=== PATIENT | female | born 1975 | race African-American/Black ===

== ENCOUNTER 2022-02-20 08:55 | Inpatient (IN) ==
[2022-02-20] MEDS ORDERED: FUROSEMIDE 100 MG/10 ML VIAL IV STA (09:19)
[2022-02-20] MEDS ORDERED: MORPHINE 2 MG/1 ML SYRINGE IV STA ×2 (09:20→10:04)
[2022-02-20] MEDS ORDERED: hydrALAZINE 20 MG/1 ML VIAL IV STA ×2 (09:21→11:15)
[2022-02-20 09:32] LABS: Basophils # 0.1 10*3/uL (0.0-0.2); Basophils % 0.5 % (0.0-0.8); Eosinophils # 0.2 10*3/uL (0.0-0.87); Eosinophils % 1.5 % (0.00-10.9); Hemoglobin 9.4 GM/DL (12.0-16.0); Immature Granulocytes % 0.8 %; Immature Granulocytes Absolute 0.09 #; Lymphocytes # 2.4 10*3/uL (1.4-4.0); Lymphocytes % 21.9 % (21.3-54.2); Mean Corpuscular HGB Conc 34.8 GM/DL (32-36); Mean Corpuscular Volume 91.2 FL (87-102); Mean Platelet Volume 9.7 FL (9.6-12.0); Monocytes # 0.6 10*3/uL (0.11-0.8); Monocytes % 5.3 % (1.7-12.7); Platelet Count 340 T/CUMM (130-400); Red Blood Count 2.96 MC/CUMM (3.8-5.5); Red Cell Distribution Width 14.6 % (9.3-17.3); White Blood Count 10.9 T/CUMM (4-12)
[2022-02-20 09:54] LABS: Alanine Aminotransferase 27 U/L (13-56); Albumin 1.6 G/DL (3.4-5.0); Alkaline Phosphatase 59 U/L (45-117); Aspartate Amino Transferase 22 U/L (0-37); Bilirubin,Total < 0.39 MG/DL (0.20-1.00); Blood Urea Nitrogen 37 MG/DL (7-18); Calcium 8.9 MG/DL (8.5-10.1); Carbon Dioxide 26 MMOL/L (21-32); Chloride 103 MMOL/L (98-107); Glucose 457 MG/DL (74-106); Osmolality,Calculated 296.2 MOS/KG (273-304); Potassium 4.3 MMOL/L (3.5-5.1); Sodium 134 MMOL/L (136-145); Total Protein 10.7 G/DL (6.4-8.2)
[2022-02-20] MEDS ORDERED: NITROGLYCERIN SL 0.4 MG TABLET SL STA (10:03)
[2022-02-20] MEDS ORDERED: MORPHINE 10 MG/1 ML VIAL IV STA (10:03)
[2022-02-20] MEDS ORDERED: NICOTINE 21 MG/24 HR PATCH TRANSDERM PRN (11:03)
[2022-02-20] MEDS ORDERED: MORPHINE 2 MG/1 ML SYRINGE IV PRN (11:03)
[2022-02-20] MEDS ORDERED: BUTALBITAL/ACETAMIN/CAFFEINE 50-325-40 MG TABLET PO PRN (11:07)
[2022-02-20] MEDS ORDERED: ALBUTEROL 2.5 MG/3 ML NEB RESP TX PRN (11:08)
[2022-02-20 11:09] LABS: Bacteria,Urine Occasional /HPF (Few); Mucus,Urine Occasional /LPF (Occasional); RBC,Urine 722 /HPF (0-4); Squamous Epithelial Cell,Urine Occasional /HPF (0-10); Urine Color Light Red (Yellow)
[2022-02-20 11:10] LABS: Bilirubin,Urine Negative (Negative); Glucose,Urine (UA) >=1000 mg/dL (Negative); Ketones,Urine Negative (Negative); Nitrite,Urine Negative (Negative); Protein,Urine >=300 mg/dL (Negative); Urine Appearance Hazy (Clear); Urine Specific Gravity 1.015 (1.001-1.035); Urine pH 6.5 (4.5-8.0)
[2022-02-20 11:11] LABS: Blood, Urine Large mg/dL (Negative); Urine Urobilinogen 0.2 eU/dL (<2.0)
[2022-02-20 11:35] LABS: % Iron Saturation 35.1 % (18-50)
[2022-02-20] MEDS: HEPARIN 5,000 UNIT/1 ML VIAL SUBCUT SCH ×2 (12:24→20:32)
[2022-02-20] MEDS: INSULIN REGULAR 100 UNIT/ML SUBCUT SCH ×3 (12:24→20:33)
[2022-02-20] MEDS ORDERED: LABETALOL 20 MG/4 ML SYRINGE IV ONE (13:05)
[2022-02-20] MEDS: ONDANSETRON 4 MG/2 ML VIAL IV PRN ×2 (13:05→18:43)
[2022-02-20 13:27] LABS: Folate > 24.00 NG/ML (5.38-24.0); Vitamin B12 559 PG/ML (211-911)
[2022-02-20] MEDS: ALBUTEROL 2.5 MG/3 ML NEB RESP TX SCH ×2 (14:34→21:02)
[2022-02-20] MEDS: cloNIDine 0.1 MG TABLET PO SCH ×2 (16:09→20:31)
[2022-02-20] MEDS: FUROSEMIDE 40 MG/4 ML VIAL IV SCH (16:11)
[2022-02-20] MEDS: hydrALAZINE 20 MG/1 ML VIAL IV PRN (16:14)
[2022-02-20] MEDS: carvediloL 25 MG TABLET PO SCH (20:31)
[2022-02-20] MEDS: AMITRIPTYLINE 25 MG TABLET PO SCH (20:37)
[2022-02-21] MEDS: ALBUTEROL 2.5 MG/3 ML NEB RESP TX SCH ×4 (02:38→19:30)
[2022-02-21 06:26] LABS: Alanine Aminotransferase 19 U/L (13-56); Albumin 1.3 G/DL (3.4-5.0); Alkaline Phosphatase 44 U/L (45-117); Aspartate Amino Transferase 8 U/L (0-37); Bilirubin,Total < 0.39 MG/DL (0.20-1.00); Blood Urea Nitrogen 42 MG/DL (7-18); Calcium 8.6 MG/DL (8.5-10.1); Carbon Dioxide 28 MMOL/L (21-32); Chloride 108 MMOL/L (98-107); Cholesterol 101 MG/DL (50-200); Glucose 140 MG/DL (74-106); HDL Cholesterol 44 MG/DL (40-60); Osmolality,Calculated 289.5 MOS/KG (273-304); Potassium 3.9 MMOL/L (3.5-5.1); Sodium 139 MMOL/L (136-145); Total Protein 8.8 G/DL (6.4-8.2); Triglycerides 69 MG/DL (2-150); VLDL Cholesterol 13.8 MG/DL
[2022-02-21 06:35] LABS: Basophils # 0.1 10*3/uL (0.0-0.2); Basophils % 0.5 % (0.0-0.8); Eosinophils # 0.1 10*3/uL (0.0-0.87); Eosinophils % 1.1 % (0.00-10.9); Hematocrit 21.9 VOL% (35.7-47.0); Hemoglobin 7.6 GM/DL (12.0-16.0); Immature Granulocytes % 0.8 %; Immature Granulocytes Absolute 0.08 #; Lymphocytes # 2.4 10*3/uL (1.4-4.0); Lymphocytes % 24.7 % (21.3-54.2); Mean Corpuscular HGB Conc 34.7 GM/DL (32-36); Mean Platelet Volume 9.7 FL (9.6-12.0); Monocytes # 0.7 10*3/uL (0.11-0.8); Monocytes % 7.5 % (1.7-12.7); NRBC # 0.02 10*3/uL; Neutrophils % 65.4 % (38.7-73.9); Platelet Count 292 T/CUMM (130-400); Red Blood Count 2.38 MC/CUMM (3.8-5.5); Red Cell Distribution Width 14.8 % (9.3-17.3); White Blood Count 9.9 T/CUMM (4-12)
[2022-02-21] MEDS ORDERED: DAPAGLIFLOZIN 10 MG TABLET PO SCH (09:00)
[2022-02-21] MEDS: SPIRONOLACTONE 25 MG TABLET PO SCH (09:03)
[2022-02-21] MEDS: cloNIDine 0.1 MG TABLET PO SCH ×3 (09:03→20:44)
[2022-02-21] MEDS: carvediloL 25 MG TABLET PO SCH ×2 (09:03→20:44)
[2022-02-21] MEDS: ASPIRIN CHEW 81 MG TABLET PO SCH (09:03)
[2022-02-21] MEDS: PANTOPRAZOLE 40 MG TABLET PO SCH (09:03)
[2022-02-21] MEDS: GABAPENTIN 100 MG CAPSULE PO SCH (09:03)
[2022-02-21] MEDS: MONTELUKAST 10 MG TABLET PO SCH (09:03)
[2022-02-21] MEDS: ERGOCALCIFEROL 50,000 UNIT CAPSULE PO SCH (09:03)
[2022-02-21] MEDS: ATORVASTATIN 40 MG TABLET PO SCH (09:04)
[2022-02-21] MEDS: HEPARIN 5,000 UNIT/1 ML VIAL SUBCUT SCH ×2 (09:05→20:47)
[2022-02-21] MEDS: FUROSEMIDE 40 MG/4 ML VIAL IV SCH ×2 (09:05→15:19)
[2022-02-21] MEDS: INSULIN REGULAR 100 UNIT/ML SUBCUT SCH ×4 (09:06→20:46)
[2022-02-21 10:59] LABS: Free T4 (Free Thyroxine) 0.9 NG/DL (0.76-1.46)
[2022-02-21 12:52] LABS: Hematocrit 22.3 VOL% (35.7-47.0); Hemoglobin 7.8 GM/DL (12.0-16.0)
[2022-02-21] MEDS ORDERED: GLUCAGON 1 MG VIAL IM PRN (12:56)
[2022-02-21] MEDS ORDERED: DEXTROSE 10% 250 ML BAG IV PRN (12:57)
[2022-02-21] MEDS ORDERED: ALUMINUM/MAGNES/SIMETH MAX STR 30 ML UDCUP PO PRN (14:51)
[2022-02-21 19:28] LABS: Hematocrit 23.9 VOL% (35.7-47.0); Hemoglobin 8.3 GM/DL (12.0-16.0)
[2022-02-21] MEDS: guaiFENesin/DM ER 600-30 MG TABLET PO PRN (20:44)
[2022-02-21] MEDS: AMITRIPTYLINE 25 MG TABLET PO SCH (20:46)
[2022-02-21] MEDS ORDERED: INSULIN GLARGINE 100 UNIT/ML SUBCUT SCH (21:00)
[2022-02-22] MEDS: ALBUTEROL 2.5 MG/3 ML NEB RESP TX SCH ×4 (00:02→19:49)
[2022-02-22 01:51] LABS: Basophils % 0.5 % (0.0-0.8); Eosinophils # 0.2 10*3/uL (0.0-0.87); Eosinophils % 2.3 % (0.00-10.9); Hemoglobin 6.6 GM/DL (12.0-16.0); Immature Granulocytes % 0.7 %; Immature Granulocytes Absolute 0.06 #; Lymphocytes # 3.3 10*3/uL (1.4-4.0); Mean Corpuscular HGB Conc 34.7 GM/DL (32-36); Mean Corpuscular Volume 91.8 FL (87-102); Mean Platelet Volume 9.7 FL (9.6-12.0); Monocytes # 0.6 10*3/uL (0.11-0.8); Monocytes % 6.9 % (1.7-12.7); Neutrophils % 49.6 % (38.7-73.9); Platelet Count 264 T/CUMM (130-400); Red Blood Count 2.07 MC/CUMM (3.8-5.5); Red Cell Distribution Width 14.7 % (9.3-17.3); White Blood Count 8.3 T/CUMM (4-12)
[2022-02-22 02:23] LABS: Potassium 4.1 MMOL/L (3.5-5.1)
[2022-02-22 07:57] LABS: Hematocrit 22.5 VOL% (35.7-47.0); Hemoglobin 7.8 GM/DL (12.0-16.0)
[2022-02-22] MEDS: cloNIDine 0.1 MG TABLET PO SCH ×3 (09:47→21:18)
[2022-02-22] MEDS: PANTOPRAZOLE 40 MG TABLET PO SCH (09:47)
[2022-02-22] MEDS: carvediloL 25 MG TABLET PO SCH ×2 (09:47→21:18)
[2022-02-22] MEDS: MONTELUKAST 10 MG TABLET PO SCH (09:47)
[2022-02-22] MEDS: ATORVASTATIN 40 MG TABLET PO SCH (09:47)
[2022-02-22] MEDS: GABAPENTIN 100 MG CAPSULE PO SCH (09:47)
[2022-02-22] MEDS: INSULIN REGULAR 100 UNIT/ML SUBCUT SCH ×4 (09:48→21:19)
[2022-02-22] MEDS: ASPIRIN CHEW 81 MG TABLET PO SCH (09:48)
[2022-02-22] MEDS: HEPARIN 5,000 UNIT/1 ML VIAL SUBCUT SCH ×2 (09:48→21:20)
[2022-02-22] MEDS: FUROSEMIDE 40 MG/4 ML VIAL IV SCH (09:48)
[2022-02-22] MEDS: SPIRONOLACTONE 25 MG TABLET PO SCH (09:48)
[2022-02-22] MEDS ORDERED: SODIUM CHLORIDE 0.9% 1,000 ML IV PRN (10:20)
[2022-02-22] MEDS ORDERED: INSULIN GLARGINE 100 UNIT/ML SUBCUT SCH (21:00)
[2022-02-22] MEDS: ACETAMINOPHEN 325 MG TABLET PO PRN (21:25)
[2022-02-22] MEDS: AMITRIPTYLINE 25 MG TABLET PO SCH (21:27)
[2022-02-22 21:38] LABS: Hematocrit 26.7 VOL% (35.7-47.0); Hemoglobin 9.2 GM/DL (12.0-16.0)
[2022-02-23] MEDS: ALBUTEROL 2.5 MG/3 ML NEB RESP TX SCH ×4 (00:49→19:14)
[2022-02-23 01:55] LABS: Basophils # 0.1 10*3/uL (0.0-0.2); Basophils % 0.6 % (0.0-0.8); Eosinophils # 0.2 10*3/uL (0.0-0.87); Eosinophils % 2.3 % (0.00-10.9); Hematocrit 25.1 VOL% (35.7-47.0); Hemoglobin 8.8 GM/DL (12.0-16.0); Immature Granulocytes Absolute 0.08 #; Lymphocytes # 3.2 10*3/uL (1.4-4.0); Lymphocytes % 38.9 % (21.3-54.2); Mean Corpuscular HGB Conc 35.1 GM/DL (32-36); Mean Corpuscular Volume 89.6 FL (87-102); Mean Platelet Volume 10.1 FL (9.6-12.0); Monocytes # 0.6 10*3/uL (0.11-0.8); NRBC # 0.02 10*3/uL; Neutrophils % 50.2 % (38.7-73.9); Platelet Count 288 T/CUMM (130-400); Red Cell Distribution Width 15.2 % (9.3-17.3); White Blood Count 8.3 T/CUMM (4-12)
[2022-02-23 01:58] LABS: Calcium 7.7 MG/DL (8.5-10.1); Osmolality,Calculated 289.4 MOS/KG (273-304); Potassium 4.8 MMOL/L (3.5-5.1)
[2022-02-23] MEDS ORDERED: FUROSEMIDE 40 MG/4 ML VIAL IV SCH (09:00)
[2022-02-23] MEDS: INSULIN REGULAR 100 UNIT/ML SUBCUT SCH ×4 (09:48→20:33)
[2022-02-23] MEDS: cloNIDine 0.1 MG TABLET PO SCH ×3 (09:49→20:32)
[2022-02-23] MEDS: SPIRONOLACTONE 25 MG TABLET PO SCH (09:49)
[2022-02-23] MEDS: carvediloL 25 MG TABLET PO SCH ×2 (09:49→20:32)
[2022-02-23] MEDS: HEPARIN 5,000 UNIT/1 ML VIAL SUBCUT SCH ×2 (09:49→20:32)
[2022-02-23] MEDS: ASPIRIN CHEW 81 MG TABLET PO SCH (09:49)
[2022-02-23] MEDS: PANTOPRAZOLE 40 MG TABLET PO SCH (09:50)
[2022-02-23] MEDS: MONTELUKAST 10 MG TABLET PO SCH (09:50)
[2022-02-23] MEDS: ATORVASTATIN 40 MG TABLET PO SCH (09:50)
[2022-02-23] MEDS: GABAPENTIN 100 MG CAPSULE PO SCH (09:50)
[2022-02-23] MEDS: ACETAMINOPHEN 325 MG TABLET PO PRN (09:58)
[2022-02-23] MEDS: POLYETHYLENE GLYCOL POWDER 17 GM PACK PO SCH ×2 (13:55→20:32)
[2022-02-23] MEDS: AMITRIPTYLINE 25 MG TABLET PO SCH (20:32)
[2022-02-23] MEDS: INSULIN GLARGINE 100 UNIT/ML SUBCUT SCH (20:33)
[2022-02-24] MEDS: ALBUTEROL 2.5 MG/3 ML NEB RESP TX SCH ×4 (00:12→22:10)
[2022-02-24 05:42] LABS: Basophils % 0.5 % (0.0-0.8); Eosinophils # 0.2 10*3/uL (0.0-0.87); Eosinophils % 2.7 % (0.00-10.9); Hematocrit 23.8 VOL% (35.7-47.0); Hemoglobin 8.2 GM/DL (12.0-16.0); Immature Granulocytes % 0.9 %; Immature Granulocytes Absolute 0.07 #; Lymphocytes # 2.6 10*3/uL (1.4-4.0); Lymphocytes % 34.8 % (21.3-54.2); Mean Corpuscular HGB Conc 34.5 GM/DL (32-36); Mean Corpuscular Volume 90.5 FL (87-102); Mean Platelet Volume 9.6 FL (9.6-12.0); Monocytes # 0.6 10*3/uL (0.11-0.8); Monocytes % 8.1 % (1.7-12.7); Platelet Count 267 T/CUMM (130-400); Red Blood Count 2.63 MC/CUMM (3.8-5.5); Red Cell Distribution Width 15.2 % (9.3-17.3); White Blood Count 7.5 T/CUMM (4-12)
[2022-02-24 05:53] LABS: INR 1.2; PT Patient Result 12.6 SECS (10.1-12.1); Partial Thromboplastin Time 24.2 SECS (23.7-32.9)
[2022-02-24 06:02] LABS: Calcium 7.7 MG/DL (8.5-10.1); Osmolality,Calculated 291.8 MOS/KG (273-304); Potassium 4.7 MMOL/L (3.5-5.1)
[2022-02-24] MEDS: cloNIDine 0.1 MG TABLET PO SCH ×3 (10:22→20:44)
[2022-02-24] MEDS: ATORVASTATIN 40 MG TABLET PO SCH (10:23)
[2022-02-24] MEDS: MONTELUKAST 10 MG TABLET PO SCH (10:23)
[2022-02-24] MEDS: metOLazone 5 MG TABLET PO SCH (10:23)
[2022-02-24] MEDS: GABAPENTIN 100 MG CAPSULE PO SCH (10:23)
[2022-02-24] MEDS: carvediloL 25 MG TABLET PO SCH ×2 (10:23→20:44)
[2022-02-24] MEDS: ASPIRIN CHEW 81 MG TABLET PO SCH (10:23)
[2022-02-24] MEDS: FUROSEMIDE 80 MG TABLET PO SCH (10:23)
[2022-02-24] MEDS: INSULIN REGULAR 100 UNIT/ML SUBCUT SCH ×4 (10:24→20:46)
[2022-02-24] MEDS: POLYETHYLENE GLYCOL POWDER 17 GM PACK PO SCH ×2 (10:24→20:44)
[2022-02-24] MEDS: PANTOPRAZOLE 40 MG TABLET PO SCH (10:24)
[2022-02-24] MEDS: HEPARIN 5,000 UNIT/1 ML VIAL SUBCUT SCH (10:24)
[2022-02-24] MEDS: ACETAMINOPHEN 325 MG TABLET PO PRN (14:49)
[2022-02-24] MEDS: AMITRIPTYLINE 25 MG TABLET PO SCH (20:44)
[2022-02-24] MEDS: INSULIN GLARGINE 100 UNIT/ML SUBCUT SCH (20:45)
[2022-02-25] MEDS: ALBUTEROL 2.5 MG/3 ML NEB RESP TX SCH ×4 (02:09→19:35)
[2022-02-25 04:06] LABS: Basophils % 0.5 % (0.0-0.8); Eosinophils # 0.2 10*3/uL (0.0-0.87); Eosinophils % 2.5 % (0.00-10.9); Hemoglobin 8.3 GM/DL (12.0-16.0); Immature Granulocytes % 0.7 %; Immature Granulocytes Absolute 0.05 #; Lymphocytes # 2.6 10*3/uL (1.4-4.0); Lymphocytes % 35.1 % (21.3-54.2); Mean Corpuscular HGB Conc 34.6 GM/DL (32-36); Mean Corpuscular Volume 90.9 FL (87-102); Mean Platelet Volume 9.7 FL (9.6-12.0); Monocytes # 0.7 10*3/uL (0.11-0.8); Monocytes % 9.4 % (1.7-12.7); Neutrophils % 51.8 % (38.7-73.9); Platelet Count 262 T/CUMM (130-400); Red Blood Count 2.64 MC/CUMM (3.8-5.5); Red Cell Distribution Width 14.8 % (9.3-17.3); White Blood Count 7.3 T/CUMM (4-12)
[2022-02-25 04:24] LABS: Calcium 7.5 MG/DL (8.5-10.1); Osmolality,Calculated 289.2 MOS/KG (273-304); Potassium 4.5 MMOL/L (3.5-5.1)
[2022-02-25] MEDS: INSULIN REGULAR 100 UNIT/ML SUBCUT SCH ×4 (07:43→21:25)
[2022-02-25] MEDS ORDERED: DIAZEPAM 5 MG TABLET PO ONE (09:04)
[2022-02-25] MEDS: metOLazone 5 MG TABLET PO SCH (09:09)
[2022-02-25] MEDS: ATORVASTATIN 40 MG TABLET PO SCH (09:09)
[2022-02-25] MEDS: cloNIDine 0.1 MG TABLET PO SCH ×3 (09:09→21:24)
[2022-02-25] MEDS: carvediloL 25 MG TABLET PO SCH ×2 (09:10→21:24)
[2022-02-25] MEDS: FUROSEMIDE 80 MG TABLET PO SCH (09:10)
[2022-02-25] MEDS: MONTELUKAST 10 MG TABLET PO SCH (09:10)
[2022-02-25] MEDS: GABAPENTIN 100 MG CAPSULE PO SCH (09:10)
[2022-02-25] MEDS: PANTOPRAZOLE 40 MG TABLET PO SCH (09:10)
[2022-02-25] MEDS: ASPIRIN CHEW 81 MG TABLET PO SCH (09:14)
[2022-02-25] MEDS: POLYETHYLENE GLYCOL POWDER 17 GM PACK PO SCH ×2 (09:15→21:23)
[2022-02-25] MEDS: ACETAMINOPHEN 325 MG TABLET PO PRN (09:16)
[2022-02-25] MEDS: AMITRIPTYLINE 25 MG TABLET PO SCH (21:24)
[2022-02-25] MEDS: INSULIN GLARGINE 100 UNIT/ML SUBCUT SCH (21:25)
[2022-02-26] MEDS: ALBUTEROL 2.5 MG/3 ML NEB RESP TX SCH ×4 (00:04→19:49)
[2022-02-26 05:41] LABS: Basophils # 0.1 10*3/uL (0.0-0.2); Basophils % 0.8 % (0.0-0.8); Eosinophils # 0.2 10*3/uL (0.0-0.87); Hematocrit 23.7 VOL% (35.7-47.0); Hemoglobin 7.8 GM/DL (12.0-16.0); Immature Granulocytes % 0.8 %; Immature Granulocytes Absolute 0.05 #; Lymphocytes # 1.9 10*3/uL (1.4-4.0); Lymphocytes % 28.9 % (21.3-54.2); Mean Corpuscular HGB Conc 32.9 GM/DL (32-36); Mean Corpuscular Volume 92.2 FL (87-102); Monocytes # 0.6 10*3/uL (0.11-0.8); Monocytes % 8.8 % (1.7-12.7); Neutrophils % 57.7 % (38.7-73.9); Platelet Count 260 T/CUMM (130-400); Red Blood Count 2.57 MC/CUMM (3.8-5.5); Red Cell Distribution Width 14.9 % (9.3-17.3); White Blood Count 6.6 T/CUMM (4-12)
[2022-02-26 06:04] LABS: Alanine Aminotransferase 44 U/L (13-56); Albumin 1.3 G/DL (3.4-5.0); Alkaline Phosphatase 86 U/L (45-117); Aspartate Amino Transferase 21 U/L (0-37); Bilirubin,Total < 0.39 MG/DL (0.20-1.00); Blood Urea Nitrogen 65 MG/DL (7-18); Calcium 7.6 MG/DL (8.5-10.1); Carbon Dioxide 24 MMOL/L (21-32); Chloride 106 MMOL/L (98-107); Glucose 277 MG/DL (74-106); Osmolality,Calculated 298.1 MOS/KG (273-304); Potassium 4.8 MMOL/L (3.5-5.1); Sodium 135 MMOL/L (136-145); Total Protein 8.8 G/DL (6.4-8.2)
[2022-02-26] MEDS: carvediloL 25 MG TABLET PO SCH ×2 (08:33→21:10)
[2022-02-26] MEDS: cloNIDine 0.1 MG TABLET PO SCH ×3 (08:34→21:10)
[2022-02-26] MEDS: ATORVASTATIN 40 MG TABLET PO SCH (08:34)
[2022-02-26] MEDS: PANTOPRAZOLE 40 MG TABLET PO SCH (08:34)
[2022-02-26] MEDS: ASPIRIN CHEW 81 MG TABLET PO SCH (08:34)
[2022-02-26] MEDS: FUROSEMIDE 80 MG TABLET PO SCH (08:34)
[2022-02-26] MEDS: POLYETHYLENE GLYCOL POWDER 17 GM PACK PO SCH ×2 (08:34→21:10)
[2022-02-26] MEDS: MONTELUKAST 10 MG TABLET PO SCH (08:34)
[2022-02-26] MEDS: GABAPENTIN 100 MG CAPSULE PO SCH (08:34)
[2022-02-26] MEDS: metOLazone 5 MG TABLET PO SCH (08:34)
[2022-02-26] MEDS: INSULIN REGULAR 100 UNIT/ML SUBCUT SCH ×4 (08:39→21:10)
[2022-02-26 15:33] LABS: Lambda Free Light Chain 1.7 mg/dL
[2022-02-26] MEDS: INSULIN GLARGINE 100 UNIT/ML SUBCUT SCH (21:10)
[2022-02-26] MEDS: AMITRIPTYLINE 25 MG TABLET PO SCH (21:10)
[2022-02-27] MEDS: ALBUTEROL 2.5 MG/3 ML NEB RESP TX SCH ×4 (00:43→20:03)
[2022-02-27 05:59] LABS: Basophils # 0.1 10*3/uL (0.0-0.2); Basophils % 0.6 % (0.0-0.8); Eosinophils # 0.2 10*3/uL (0.0-0.87); Eosinophils % 2.6 % (0.00-10.9); Hematocrit 23.1 VOL% (35.7-47.0); Hemoglobin 7.7 GM/DL (12.0-16.0); Immature Granulocytes % 0.5 %; Immature Granulocytes Absolute 0.04 #; Lymphocytes # 1.9 10*3/uL (1.4-4.0); Lymphocytes % 24.1 % (21.3-54.2); Mean Corpuscular HGB Conc 33.3 GM/DL (32-36); Mean Platelet Volume 9.5 FL (9.6-12.0); Monocytes # 0.8 10*3/uL (0.11-0.8); Monocytes % 9.6 % (1.7-12.7); Neutrophils % 62.6 % (38.7-73.9); Platelet Count 263 T/CUMM (130-400); Red Blood Count 2.51 MC/CUMM (3.8-5.5); Red Cell Distribution Width 14.8 % (9.3-17.3); White Blood Count 7.8 T/CUMM (4-12)
[2022-02-27 06:16] LABS: Potassium 4.1 MMOL/L (3.5-5.1)
[2022-02-27] MEDS: INSULIN REGULAR 100 UNIT/ML SUBCUT SCH ×4 (08:01→21:32)
[2022-02-27] MEDS: cloNIDine 0.1 MG TABLET PO SCH ×3 (08:34→20:57)
[2022-02-27] MEDS: ASPIRIN CHEW 81 MG TABLET PO SCH (08:34)
[2022-02-27] MEDS: POLYETHYLENE GLYCOL POWDER 17 GM PACK PO SCH ×2 (08:34→20:58)
[2022-02-27] MEDS: ATORVASTATIN 40 MG TABLET PO SCH (08:34)
[2022-02-27] MEDS: PANTOPRAZOLE 40 MG TABLET PO SCH (08:34)
[2022-02-27] MEDS: carvediloL 25 MG TABLET PO SCH ×2 (08:35→20:58)
[2022-02-27] MEDS: MONTELUKAST 10 MG TABLET PO SCH (08:35)
[2022-02-27] MEDS: metOLazone 5 MG TABLET PO SCH (08:35)
[2022-02-27] MEDS: GABAPENTIN 100 MG CAPSULE PO SCH (08:35)
[2022-02-27] MEDS: FUROSEMIDE 80 MG TABLET PO SCH (08:35)
[2022-02-27] MEDS: AMITRIPTYLINE 25 MG TABLET PO SCH (20:58)
[2022-02-27] MEDS: INSULIN GLARGINE 100 UNIT/ML SUBCUT SCH (20:59)
[2022-02-28] MEDS: ALBUTEROL 2.5 MG/3 ML NEB RESP TX SCH ×3 (00:30→07:40)
[2022-02-28 04:56] LABS: Basophils # 0.1 10*3/uL (0.0-0.2); Basophils % 0.7 % (0.0-0.8); Eosinophils # 0.2 10*3/uL (0.0-0.87); Eosinophils % 2.5 % (0.00-10.9); Hematocrit 23.9 VOL% (35.7-47.0); Hemoglobin 8.1 GM/DL (12.0-16.0); Immature Granulocytes % 0.3 %; Immature Granulocytes Absolute 0.02 #; Lymphocytes # 2.4 10*3/uL (1.4-4.0); Lymphocytes % 35.1 % (21.3-54.2); Mean Corpuscular HGB Conc 33.9 GM/DL (32-36); Mean Corpuscular Volume 92.3 FL (87-102); Mean Platelet Volume 9.9 FL (9.6-12.0); Monocytes # 0.5 10*3/uL (0.11-0.8); Monocytes % 6.7 % (1.7-12.7); Neutrophils % 54.7 % (38.7-73.9); Platelet Count 271 T/CUMM (130-400); Red Blood Count 2.59 MC/CUMM (3.8-5.5); Red Cell Distribution Width 14.8 % (9.3-17.3); White Blood Count 6.8 T/CUMM (4-12)
[2022-02-28 05:17] LABS: Calcium 8.2 MG/DL (8.5-10.1); Osmolality,Calculated 285.4 MOS/KG (273-304); Potassium 4.5 MMOL/L (3.5-5.1)
[2022-02-28] MEDS: INSULIN REGULAR 100 UNIT/ML SUBCUT SCH ×4 (08:49→21:35)
[2022-02-28] MEDS: POLYETHYLENE GLYCOL POWDER 17 GM PACK PO SCH ×2 (08:49→21:33)
[2022-02-28] MEDS: carvediloL 25 MG TABLET PO SCH ×2 (08:50→21:34)
[2022-02-28] MEDS: cloNIDine 0.1 MG TABLET PO SCH ×3 (08:50→21:34)
[2022-02-28] MEDS: ATORVASTATIN 40 MG TABLET PO SCH (08:50)
[2022-02-28] MEDS: MONTELUKAST 10 MG TABLET PO SCH (08:50)
[2022-02-28] MEDS: FUROSEMIDE 80 MG TABLET PO SCH (08:50)
[2022-02-28] MEDS: ERGOCALCIFEROL 50,000 UNIT CAPSULE PO SCH (08:50)
[2022-02-28] MEDS: PANTOPRAZOLE 40 MG TABLET PO SCH (08:51)
[2022-02-28] MEDS: metOLazone 5 MG TABLET PO SCH (08:51)
[2022-02-28] MEDS: GABAPENTIN 100 MG CAPSULE PO SCH (08:51)
[2022-02-28] MEDS: ASPIRIN CHEW 81 MG TABLET PO SCH (08:51)
[2022-02-28] MEDS: AMITRIPTYLINE 25 MG TABLET PO SCH (21:34)
[2022-02-28] MEDS: INSULIN GLARGINE 100 UNIT/ML SUBCUT SCH (21:35)
[2022-03-01 04:47] LABS: Basophils % 0.5 % (0.0-0.8); Eosinophils # 0.2 10*3/uL (0.0-0.87); Eosinophils % 3.4 % (0.00-10.9); Hematocrit 24.2 VOL% (35.7-47.0); Hemoglobin 8.1 GM/DL (12.0-16.0); Immature Granulocytes % 0.3 %; Immature Granulocytes Absolute 0.02 #; Lymphocytes # 2.5 10*3/uL (1.4-4.0); Lymphocytes % 39.6 % (21.3-54.2); Mean Corpuscular HGB Conc 33.5 GM/DL (32-36); Mean Corpuscular Volume 93.1 FL (87-102); Mean Platelet Volume 9.8 FL (9.6-12.0); Monocytes # 0.6 10*3/uL (0.11-0.8); Neutrophils % 47.2 % (38.7-73.9); Platelet Count 270 T/CUMM (130-400); Red Cell Distribution Width 14.8 % (9.3-17.3); White Blood Count 6.4 T/CUMM (4-12)
[2022-03-01 05:15] LABS: Osmolality,Calculated 292.7 MOS/KG (273-304); Potassium 4.6 MMOL/L (3.5-5.1)
[2022-03-01] MEDS: ALBUTEROL 2.5 MG/3 ML NEB RESP TX SCH ×4 (06:10→20:42)
[2022-03-01] MEDS: ASPIRIN CHEW 81 MG TABLET PO SCH (08:36)
[2022-03-01] MEDS: INSULIN REGULAR 100 UNIT/ML SUBCUT SCH ×4 (08:36→22:55)
[2022-03-01] MEDS: MONTELUKAST 10 MG TABLET PO SCH (08:37)
[2022-03-01] MEDS: ATORVASTATIN 40 MG TABLET PO SCH (08:37)
[2022-03-01] MEDS: FUROSEMIDE 80 MG TABLET PO SCH ×2 (08:37→11:39)
[2022-03-01] MEDS: metOLazone 5 MG TABLET PO SCH (08:37)
[2022-03-01] MEDS: carvediloL 25 MG TABLET PO SCH ×2 (08:37→22:56)
[2022-03-01] MEDS: PANTOPRAZOLE 40 MG TABLET PO SCH (08:37)
[2022-03-01] MEDS: GABAPENTIN 100 MG CAPSULE PO SCH (08:37)
[2022-03-01] MEDS: cloNIDine 0.1 MG TABLET PO SCH ×3 (08:37→22:56)
[2022-03-01] MEDS: hydrALAZINE 20 MG/1 ML VIAL IV PRN (08:39)
[2022-03-01] MEDS: POLYETHYLENE GLYCOL POWDER 17 GM PACK PO SCH ×2 (08:40→22:55)
[2022-03-01] MEDS: INSULIN GLARGINE 100 UNIT/ML SUBCUT SCH (22:55)
[2022-03-01] MEDS: AMITRIPTYLINE 25 MG TABLET PO SCH (22:56)
[2022-03-01] MEDS: HEPARIN 5,000 UNIT/1 ML VIAL SUBCUT SCH (23:00)
[2022-03-02] MEDS: ALBUTEROL 2.5 MG/3 ML NEB RESP TX SCH ×4 (02:48→20:21)
[2022-03-02 08:45] LABS: Basophils % 0.7 % (0.0-0.8); Eosinophils # 0.2 10*3/uL (0.0-0.87); Eosinophils % 3.1 % (0.00-10.9); Hematocrit 22.3 VOL% (35.7-47.0); Hemoglobin 7.4 GM/DL (12.0-16.0); Immature Granulocytes % 0.3 %; Immature Granulocytes Absolute 0.02 #; Lymphocytes # 1.8 10*3/uL (1.4-4.0); Lymphocytes % 30.9 % (21.3-54.2); Mean Corpuscular HGB Conc 33.2 GM/DL (32-36); Mean Corpuscular Volume 92.1 FL (87-102); Mean Platelet Volume 9.2 FL (9.6-12.0); Monocytes # 0.6 10*3/uL (0.11-0.8); Platelet Count 242 T/CUMM (130-400); Red Blood Count 2.42 MC/CUMM (3.8-5.5); Red Cell Distribution Width 14.6 % (9.3-17.3); White Blood Count 5.8 T/CUMM (4-12)
[2022-03-02] MEDS: MONTELUKAST 10 MG TABLET PO SCH (09:09)
[2022-03-02] MEDS: GABAPENTIN 100 MG CAPSULE PO SCH (09:09)
[2022-03-02] MEDS: ASPIRIN CHEW 81 MG TABLET PO SCH (09:09)
[2022-03-02] MEDS: metOLazone 5 MG TABLET PO SCH (09:10)
[2022-03-02] MEDS: ATORVASTATIN 40 MG TABLET PO SCH (09:10)
[2022-03-02] MEDS: PANTOPRAZOLE 40 MG TABLET PO SCH (09:10)
[2022-03-02] MEDS: FUROSEMIDE 80 MG TABLET PO SCH (09:10)
[2022-03-02] MEDS: carvediloL 25 MG TABLET PO SCH ×2 (09:10→21:31)
[2022-03-02] MEDS: INSULIN REGULAR 100 UNIT/ML SUBCUT SCH ×4 (09:11→21:30)
[2022-03-02] MEDS: POLYETHYLENE GLYCOL POWDER 17 GM PACK PO SCH ×2 (09:11→21:30)
[2022-03-02] MEDS: cloNIDine 0.1 MG TABLET PO SCH ×3 (09:11→21:31)
[2022-03-02 09:42] LABS: Calcium 7.9 MG/DL (8.5-10.1); Osmolality,Calculated 292.2 MOS/KG (273-304); Potassium 4.8 MMOL/L (3.5-5.1)
[2022-03-02] MEDS: INSULIN GLARGINE 100 UNIT/ML SUBCUT SCH (21:30)
[2022-03-02] MEDS: AMITRIPTYLINE 25 MG TABLET PO SCH (21:31)
[2022-03-03] MEDS: ALBUTEROL 2.5 MG/3 ML NEB RESP TX SCH ×4 (00:05→19:16)
[2022-03-03 04:52] LABS: Basophils % 0.5 % (0.0-0.8); Eosinophils # 0.2 10*3/uL (0.0-0.87); Eosinophils % 3.2 % (0.00-10.9); Hematocrit 21.4 VOL% (35.7-47.0); Hemoglobin 7.2 GM/DL (12.0-16.0); Immature Granulocytes % 0.6 %; Immature Granulocytes Absolute 0.04 #; Lymphocytes # 2.2 10*3/uL (1.4-4.0); Lymphocytes % 33.7 % (21.3-54.2); Mean Corpuscular HGB Conc 33.6 GM/DL (32-36); Mean Corpuscular Volume 92.6 FL (87-102); Mean Platelet Volume 9.9 FL (9.6-12.0); Monocytes # 0.7 10*3/uL (0.11-0.8); Monocytes % 10.3 % (1.7-12.7); Neutrophils % 51.7 % (38.7-73.9); Platelet Count 243 T/CUMM (130-400); Red Blood Count 2.31 MC/CUMM (3.8-5.5); Red Cell Distribution Width 14.7 % (9.3-17.3); White Blood Count 6.5 T/CUMM (4-12)
[2022-03-03 05:20] LABS: Calcium 8.1 MG/DL (8.5-10.1); Osmolality,Calculated 293.7 MOS/KG (273-304); Potassium 4.7 MMOL/L (3.5-5.1)
[2022-03-03] MEDS ORDERED: HEPARIN 5,000 UNIT/1 ML VIAL ONE (07:38)
[2022-03-03] MEDS ORDERED: SODIUM CHLORIDE 0.9% 1,000 ML IV PRN ×2 (08:29→15:37)
[2022-03-03] MEDS: ASPIRIN CHEW 81 MG TABLET PO SCH (08:57)
[2022-03-03] MEDS: POLYETHYLENE GLYCOL POWDER 17 GM PACK PO SCH ×2 (08:57→22:30)
[2022-03-03] MEDS: cloNIDine 0.1 MG TABLET PO SCH (08:58)
[2022-03-03] MEDS: metOLazone 5 MG TABLET PO SCH ×2 (08:58→22:29)
[2022-03-03] MEDS: carvediloL 25 MG TABLET PO SCH ×2 (08:59→22:29)
[2022-03-03] MEDS: ATORVASTATIN 40 MG TABLET PO SCH (08:59)
[2022-03-03] MEDS: GABAPENTIN 100 MG CAPSULE PO SCH (08:59)
[2022-03-03] MEDS: FUROSEMIDE 80 MG TABLET PO SCH ×2 (08:59→15:37)
[2022-03-03] MEDS: PANTOPRAZOLE 40 MG TABLET PO SCH (08:59)
[2022-03-03] MEDS: MONTELUKAST 10 MG TABLET PO SCH (09:00)
[2022-03-03] MEDS: ONDANSETRON 4 MG/2 ML VIAL IV PRN (09:21)
[2022-03-03] MEDS: INSULIN REGULAR 100 UNIT/ML SUBCUT SCH ×4 (09:22→22:29)
[2022-03-03] MEDS: DEXAMETHASONE INJ 10 MG in SODIUM CHLORIDE 0.9% 50 ML IV SCH (09:31)
[2022-03-03] MEDS ORDERED: GRANISETRON 1 MG/1 ML VIAL IV SCH (12:30)
[2022-03-03] MEDS ORDERED: ALBUMIN 25% 12.5 GM/50 ML VIAL IV ONE (12:32)
[2022-03-03] MEDS ORDERED: CYCLOPHOSPHAMIDE INJ 1,000 MG in SODIUM CHLORIDE 0.9% 250 ML IV ONE (13:00)
[2022-03-03] MEDS: INSULIN GLARGINE 100 UNIT/ML SUBCUT SCH (22:26)
[2022-03-03] MEDS: AMITRIPTYLINE 25 MG TABLET PO SCH (22:29)
[2022-03-04] MEDS: ALBUTEROL 2.5 MG/3 ML NEB RESP TX SCH ×2 (00:33→07:28)
[2022-03-04 01:48] LABS: Hematocrit 22.8 VOL% (35.7-47.0); Hemoglobin 7.7 GM/DL (12.0-16.0)
[2022-03-04 05:17] LABS: Basophils % 0.5 % (0.0-0.8); Eosinophils # 0.1 10*3/uL (0.0-0.87); Eosinophils % 0.8 % (0.00-10.9); Hematocrit 23.2 VOL% (35.7-47.0); Hemoglobin 7.8 GM/DL (12.0-16.0); Immature Granulocytes % 0.5 %; Immature Granulocytes Absolute 0.04 #; Lymphocytes # 1.9 10*3/uL (1.4-4.0); Lymphocytes % 25.4 % (21.3-54.2); Mean Corpuscular HGB Conc 33.6 GM/DL (32-36); Mean Corpuscular Volume 92.1 FL (87-102); Mean Platelet Volume 9.8 FL (9.6-12.0); Monocytes # 0.7 10*3/uL (0.11-0.8); Monocytes % 9.4 % (1.7-12.7); Neutrophils % 63.4 % (38.7-73.9); Platelet Count 245 T/CUMM (130-400); Red Blood Count 2.52 MC/CUMM (3.8-5.5); Red Cell Distribution Width 14.7 % (9.3-17.3); White Blood Count 7.4 T/CUMM (4-12)
[2022-03-04 05:34] LABS: Calcium 7.9 MG/DL (8.5-10.1); Osmolality,Calculated 299.2 MOS/KG (273-304); Potassium 4.5 MMOL/L (3.5-5.1)
[2022-03-04] MEDS: FUROSEMIDE 80 MG TABLET PO SCH (09:01)
[2022-03-04] MEDS ORDERED: HYDROCORTISONE 1% CREAM 28 GM TUBE TOP PRN (10:01)
[2022-03-04] MEDS: POLYETHYLENE GLYCOL POWDER 17 GM PACK PO SCH ×2 (10:13→21:49)
[2022-03-04] MEDS: carvediloL 25 MG TABLET PO SCH ×2 (10:14→21:50)
[2022-03-04] MEDS: PANTOPRAZOLE 40 MG TABLET PO SCH (10:14)
[2022-03-04] MEDS: ASPIRIN CHEW 81 MG TABLET PO SCH (10:15)
[2022-03-04] MEDS: GABAPENTIN 100 MG CAPSULE PO SCH (10:16)
[2022-03-04] MEDS: metOLazone 5 MG TABLET PO SCH ×2 (10:17→21:50)
[2022-03-04] MEDS: MONTELUKAST 10 MG TABLET PO SCH (10:17)
[2022-03-04] MEDS: ATORVASTATIN 40 MG TABLET PO SCH (10:17)
[2022-03-04] MEDS: INSULIN REGULAR 100 UNIT/ML SUBCUT SCH ×4 (10:18→21:51)
[2022-03-04] MEDS: DEXAMETHASONE INJ 10 MG in SODIUM CHLORIDE 0.9% 50 ML IV SCH (10:22)
[2022-03-04] MEDS: ALBUMIN 25% 12.5 GM/50 ML VIAL IV SCH ×2 (10:50→21:52)
[2022-03-04] MEDS ORDERED: FUROSEMIDE 40 MG/4 ML VIAL IV SCH (16:00)
[2022-03-04] MEDS: FUROSEMIDE INJ 240 MG in SODIUM CHLORIDE 0.9% 50 ML IV SCH (18:02)
[2022-03-04] MEDS: AMITRIPTYLINE 25 MG TABLET PO SCH (21:50)
[2022-03-04] MEDS: INSULIN GLARGINE 100 UNIT/ML SUBCUT SCH (21:51)
[2022-03-05 05:54] LABS: Basophils % 0.5 % (0.0-0.8); Eosinophils # 0.1 10*3/uL (0.0-0.87); Eosinophils % 1.7 % (0.00-10.9); Hematocrit 22.1 VOL% (35.7-47.0); Hemoglobin 7.4 GM/DL (12.0-16.0); Immature Granulocytes % 0.5 %; Immature Granulocytes Absolute 0.04 #; Lymphocytes # 2.2 10*3/uL (1.4-4.0); Lymphocytes % 28.6 % (21.3-54.2); Mean Corpuscular HGB Conc 33.5 GM/DL (32-36); Mean Corpuscular Volume 92.1 FL (87-102); Mean Platelet Volume 10.7 FL (9.6-12.0); Monocytes # 0.6 10*3/uL (0.11-0.8); Monocytes % 8.4 % (1.7-12.7); Neutrophils % 60.3 % (38.7-73.9); Platelet Count 208 T/CUMM (130-400); Red Cell Distribution Width 14.5 % (9.3-17.3); White Blood Count 7.6 T/CUMM (4-12)
[2022-03-05 06:16] LABS: Calcium 8.4 MG/DL (8.5-10.1); Osmolality,Calculated 293.4 MOS/KG (273-304); Potassium 4.1 MMOL/L (3.5-5.1)
[2022-03-05] MEDS: INSULIN REGULAR 100 UNIT/ML SUBCUT SCH ×4 (08:00→23:23)
[2022-03-05] MEDS: FUROSEMIDE INJ 240 MG in SODIUM CHLORIDE 0.9% 50 ML IV SCH ×2 (08:38→15:25)
[2022-03-05] MEDS: POLYETHYLENE GLYCOL POWDER 17 GM PACK PO SCH ×2 (08:39→23:24)
[2022-03-05] MEDS: ASPIRIN CHEW 81 MG TABLET PO SCH (08:40)
[2022-03-05] MEDS: carvediloL 25 MG TABLET PO SCH ×2 (08:40→23:22)
[2022-03-05] MEDS: PANTOPRAZOLE 40 MG TABLET PO SCH (08:40)
[2022-03-05] MEDS: ATORVASTATIN 40 MG TABLET PO SCH (08:40)
[2022-03-05] MEDS: metOLazone 5 MG TABLET PO SCH ×2 (08:40→23:22)
[2022-03-05] MEDS: GABAPENTIN 100 MG CAPSULE PO SCH (08:40)
[2022-03-05] MEDS: MONTELUKAST 10 MG TABLET PO SCH (08:41)
[2022-03-05] MEDS: ALBUMIN 25% 12.5 GM/50 ML VIAL IV SCH ×2 (10:15→23:19)
[2022-03-05] MEDS: DEXAMETHASONE INJ 10 MG in SODIUM CHLORIDE 0.9% 50 ML IV SCH (10:50)
[2022-03-05] MEDS: SODIUM CHLORIDE 0.9% IV SCH ×2 (11:30→23:19)
[2022-03-05] MEDS: FUROSEMIDE IV SCH ×2 (11:30→23:19)
[2022-03-05] MEDS: AMITRIPTYLINE 25 MG TABLET PO SCH (23:22)
[2022-03-05] MEDS: INSULIN GLARGINE 100 UNIT/ML SUBCUT SCH (23:23)
[2022-03-06] MEDS: diphenhydrAMINE CAP 25 MG CAPSULE PO PRN ×2 (04:19→22:01)
[2022-03-06 06:07] LABS: Basophils % 0.6 % (0.0-0.8); Eosinophils # 0.1 10*3/uL (0.0-0.87); Eosinophils % 1.7 % (0.00-10.9); Hematocrit 20.9 VOL% (35.7-47.0); Hemoglobin 7.1 GM/DL (12.0-16.0); Immature Granulocytes % 0.6 %; Immature Granulocytes Absolute 0.04 #; Lymphocytes % 27.1 % (21.3-54.2); Mean Corpuscular Volume 90.5 FL (87-102); Mean Platelet Volume 9.7 FL (9.6-12.0); Monocytes # 0.7 10*3/uL (0.11-0.8); Monocytes % 9.7 % (1.7-12.7); Neutrophils % 60.3 % (38.7-73.9); Platelet Count 241 T/CUMM (130-400); Red Blood Count 2.31 MC/CUMM (3.8-5.5); Red Cell Distribution Width 14.4 % (9.3-17.3); White Blood Count 7.2 T/CUMM (4-12)
[2022-03-06 06:24] LABS: Calcium 8.4 MG/DL (8.5-10.1); Osmolality,Calculated 296.4 MOS/KG (273-304); Potassium 3.8 MMOL/L (3.5-5.1)
[2022-03-06] MEDS: FUROSEMIDE IV SCH ×2 (07:43→20:45)
[2022-03-06] MEDS: SODIUM CHLORIDE 0.9% IV SCH ×2 (07:43→20:45)
[2022-03-06] MEDS: INSULIN REGULAR 100 UNIT/ML SUBCUT SCH ×4 (08:52→22:00)
[2022-03-06] MEDS: MONTELUKAST 10 MG TABLET PO SCH (08:53)
[2022-03-06] MEDS: ATORVASTATIN 40 MG TABLET PO SCH (08:53)
[2022-03-06] MEDS: POLYETHYLENE GLYCOL POWDER 17 GM PACK PO SCH ×2 (08:53→22:02)
[2022-03-06] MEDS: ASPIRIN CHEW 81 MG TABLET PO SCH (08:54)
[2022-03-06] MEDS: metOLazone 5 MG TABLET PO SCH ×2 (08:54→22:00)
[2022-03-06] MEDS: carvediloL 25 MG TABLET PO SCH ×2 (08:54→22:02)
[2022-03-06] MEDS: GABAPENTIN 100 MG CAPSULE PO SCH (08:54)
[2022-03-06] MEDS: PANTOPRAZOLE 40 MG TABLET PO SCH (08:54)
[2022-03-06] MEDS: DEXAMETHASONE INJ 10 MG in SODIUM CHLORIDE 0.9% 50 ML IV SCH (09:02)
[2022-03-06] MEDS: INSULIN GLARGINE 100 UNIT/ML SUBCUT SCH (22:00)
[2022-03-06] MEDS: AMITRIPTYLINE 25 MG TABLET PO SCH (22:01)
[2022-03-07 05:38] LABS: Basophils # 0.1 10*3/uL (0.0-0.2); Basophils % 0.7 % (0.0-0.8); Eosinophils # 0.2 10*3/uL (0.0-0.87); Eosinophils % 2.9 % (0.00-10.9); Hemoglobin 7.2 GM/DL (12.0-16.0); Immature Granulocytes % 0.5 %; Immature Granulocytes Absolute 0.04 #; Lymphocytes # 2.1 10*3/uL (1.4-4.0); Lymphocytes % 28.2 % (21.3-54.2); Mean Corpuscular HGB Conc 34.3 GM/DL (32-36); Mean Corpuscular Volume 89.7 FL (87-102); Mean Platelet Volume 9.8 FL (9.6-12.0); Monocytes # 0.8 10*3/uL (0.11-0.8); Monocytes % 11.1 % (1.7-12.7); NRBC # 0.02 10*3/uL; Neutrophils % 56.6 % (38.7-73.9); Platelet Count 244 T/CUMM (130-400); Red Blood Count 2.34 MC/CUMM (3.8-5.5); Red Cell Distribution Width 14.3 % (9.3-17.3); White Blood Count 7.5 T/CUMM (4-12)
[2022-03-07 05:53] LABS: Calcium 8.1 MG/DL (8.5-10.1); Potassium 3.7 MMOL/L (3.5-5.1)
[2022-03-07] MEDS: FUROSEMIDE IV SCH (06:25)
[2022-03-07] MEDS: SODIUM CHLORIDE 0.9% IV SCH (06:25)
[2022-03-07] MEDS: cefTRIAXone 1,000 MG in SODIUM CHLORIDE 0.9% 100 ML IV SCH (08:20)
[2022-03-07] MEDS: INSULIN REGULAR 100 UNIT/ML SUBCUT SCH ×4 (08:20→22:43)
[2022-03-07] MEDS: ATORVASTATIN 40 MG TABLET PO SCH (08:20)
[2022-03-07] MEDS: ASPIRIN CHEW 81 MG TABLET PO SCH (08:21)
[2022-03-07] MEDS: PANTOPRAZOLE 40 MG TABLET PO SCH (08:21)
[2022-03-07] MEDS: MONTELUKAST 10 MG TABLET PO SCH (08:21)
[2022-03-07] MEDS: GABAPENTIN 100 MG CAPSULE PO SCH (08:21)
[2022-03-07] MEDS: ERGOCALCIFEROL 50,000 UNIT CAPSULE PO SCH (08:21)
[2022-03-07] MEDS: metOLazone 5 MG TABLET PO SCH ×2 (08:21→22:42)
[2022-03-07] MEDS: carvediloL 25 MG TABLET PO SCH ×2 (08:21→22:41)
[2022-03-07] MEDS: POLYETHYLENE GLYCOL POWDER 17 GM PACK PO SCH ×2 (08:22→22:41)
[2022-03-07] MEDS: DEXAMETHASONE INJ 10 MG in SODIUM CHLORIDE 0.9% 50 ML IV SCH (09:31)
[2022-03-07] MEDS: AZITHROMYCIN INJ 500 MG in SODIUM CHLORIDE 0.9% 250 ML IV SCH (10:36)
[2022-03-07] MEDS ORDERED: ALPRAZolam 0.25 MG TABLET PO ONE (21:45)
[2022-03-07] MEDS ORDERED: MORPHINE 2 MG/1 ML SYRINGE ONE (22:26)
[2022-03-07] MEDS: AMITRIPTYLINE 25 MG TABLET PO SCH (22:41)
[2022-03-07] MEDS: INSULIN GLARGINE 100 UNIT/ML SUBCUT SCH (22:42)
[2022-03-07] MEDS: MORPHINE 2 MG/1 ML SYRINGE IV PRN (22:44)
[2022-03-07] MEDS: ONDANSETRON 4 MG/2 ML VIAL IV PRN (22:53)
[2022-03-08 06:09] LABS: Basophils % 0.3 % (0.0-0.8); Eosinophils # 0.2 10*3/uL (0.0-0.87); Hematocrit 20.2 VOL% (35.7-47.0); Hemoglobin 6.9 GM/DL (12.0-16.0); Immature Granulocytes % 0.6 %; Immature Granulocytes Absolute 0.04 #; Lymphocytes # 1.9 10*3/uL (1.4-4.0); Lymphocytes % 28.6 % (21.3-54.2); Mean Corpuscular HGB Conc 34.2 GM/DL (32-36); Mean Corpuscular Volume 91.4 FL (87-102); Mean Platelet Volume 9.9 FL (9.6-12.0); Monocytes # 0.7 10*3/uL (0.11-0.8); Monocytes % 10.1 % (1.7-12.7); Neutrophils % 57.4 % (38.7-73.9); Platelet Count 260 T/CUMM (130-400); Red Blood Count 2.21 MC/CUMM (3.8-5.5); Red Cell Distribution Width 14.3 % (9.3-17.3); White Blood Count 6.6 T/CUMM (4-12)
[2022-03-08 06:29] LABS: Calcium 7.9 MG/DL (8.5-10.1)
[2022-03-08] MEDS: INSULIN REGULAR 100 UNIT/ML SUBCUT SCH ×4 (08:32→20:56)
[2022-03-08] MEDS: cefTRIAXone 1,000 MG in SODIUM CHLORIDE 0.9% 100 ML IV SCH (09:25)
[2022-03-08] MEDS: DEXAMETHASONE INJ 10 MG in SODIUM CHLORIDE 0.9% 50 ML IV SCH (10:11)
[2022-03-08] MEDS: AZITHROMYCIN INJ 500 MG in SODIUM CHLORIDE 0.9% 250 ML IV SCH (10:58)
[2022-03-08] MEDS ORDERED: fentaNYL 100 MCG/2 ML VIAL ONE (11:25)
[2022-03-08] MEDS ORDERED: MIDAZOLAM 2 MG/2 ML VIAL ONE (11:25)
[2022-03-08] MEDS ORDERED: HEPARIN 5,000 UNIT/1 ML VIAL ONE (11:28)
[2022-03-08] MEDS ORDERED: BUPIVACAINE MPF 0.25% 10 ML VIAL ONE ×2 (11:28→11:46)
[2022-03-08] MEDS ORDERED: LIDOCAINE 1%/EPI INJ 20 ML VIAL ONE (11:29)
[2022-03-08] MEDS ORDERED: SODIUM CHLORIDE 0.9% 250 ML IV SCH (11:30)
[2022-03-08] MEDS ORDERED: SODIUM CHLORIDE 0.9% 250 ML IV ONE (12:02)
[2022-03-08] MEDS ORDERED: ETOMIDATE 40 MG/20 ML VIAL IV ONE (12:02)
[2022-03-08] MEDS ORDERED: LIDOCAINE 2% 5 ML VIAL ONE (12:02)
[2022-03-08] MEDS ORDERED: propofoL 200 MG/20 ML VIAL IV ONE (12:02)
[2022-03-08] MEDS ORDERED: SODIUM CHLORIDE 0.9% 1,000 ML IV PRN (13:08)
[2022-03-08] MEDS ORDERED: ALBUMIN 25% 25 GM/100 ML VIAL IV PRN (13:18)
[2022-03-08] MEDS: carvediloL 25 MG TABLET PO SCH ×2 (13:38→20:53)
[2022-03-08] MEDS: metOLazone 5 MG TABLET PO SCH ×2 (13:38→20:53)
[2022-03-08] MEDS: MONTELUKAST 10 MG TABLET PO SCH (13:38)
[2022-03-08] MEDS: GABAPENTIN 100 MG CAPSULE PO SCH (13:38)
[2022-03-08] MEDS: PANTOPRAZOLE 40 MG TABLET PO SCH (13:38)
[2022-03-08] MEDS: ATORVASTATIN 40 MG TABLET PO SCH (13:39)
[2022-03-08] MEDS: ASPIRIN CHEW 81 MG TABLET PO SCH (13:39)
[2022-03-08] MEDS: POLYETHYLENE GLYCOL POWDER 17 GM PACK PO SCH ×2 (13:41→20:57)
[2022-03-08] MEDS: ONDANSETRON 4 MG/2 ML VIAL IV PRN (20:50)
[2022-03-08] MEDS: AMITRIPTYLINE 25 MG TABLET PO SCH (20:53)
[2022-03-08] MEDS: MORPHINE 2 MG/1 ML SYRINGE IV PRN (20:54)
[2022-03-08] MEDS: INSULIN GLARGINE 100 UNIT/ML SUBCUT SCH (20:56)
[2022-03-08] MEDS ORDERED: POLYETHYLENE GLYCOL POWDER 17 GM PACK PO PRN (22:47)
[2022-03-09] MEDS: ONDANSETRON 4 MG/2 ML VIAL IV PRN ×3 (02:46→23:22)
[2022-03-09] MEDS: LOPERAMIDE 2 MG CAPSULE PO PRN ×3 (02:46→23:14)
[2022-03-09] MEDS: MORPHINE 2 MG/1 ML SYRINGE IV PRN ×3 (02:51→23:15)
[2022-03-09 06:14] LABS: Basophils % 0.4 % (0.0-0.8); Eosinophils # 0.1 10*3/uL (0.0-0.87); Eosinophils % 1.5 % (0.00-10.9); Hematocrit 21.5 VOL% (35.7-47.0); Hemoglobin 7.3 GM/DL (12.0-16.0); Immature Granulocytes % 0.7 %; Immature Granulocytes Absolute 0.05 #; Lymphocytes # 1.6 10*3/uL (1.4-4.0); Lymphocytes % 22.8 % (21.3-54.2); Mean Corpuscular Volume 91.5 FL (87-102); Mean Platelet Volume 10.1 FL (9.6-12.0); Monocytes # 0.8 10*3/uL (0.11-0.8); Monocytes % 11.2 % (1.7-12.7); NRBC # 0.02 10*3/uL; Neutrophils % 63.4 % (38.7-73.9); Platelet Count 241 T/CUMM (130-400); Red Blood Count 2.35 MC/CUMM (3.8-5.5); Red Cell Distribution Width 14.4 % (9.3-17.3); White Blood Count 6.8 T/CUMM (4-12)
[2022-03-09 06:35] LABS: Calcium 7.7 MG/DL (8.5-10.1); Potassium 4.6 MMOL/L (3.5-5.1)
[2022-03-09 08:27] LABS: Hepatitis B Surface Ag Quant < 0.10 Index; Hepatitis B Surface Ag Result Non-Reactive (NonReactive)
[2022-03-09] MEDS: MONTELUKAST 10 MG TABLET PO SCH (08:57)
[2022-03-09] MEDS: carvediloL 25 MG TABLET PO SCH ×2 (08:57→23:14)
[2022-03-09] MEDS: ATORVASTATIN 40 MG TABLET PO SCH (08:58)
[2022-03-09] MEDS: metOLazone 5 MG TABLET PO SCH ×2 (08:58→23:14)
[2022-03-09] MEDS: GABAPENTIN 100 MG CAPSULE PO SCH (08:58)
[2022-03-09] MEDS: ASPIRIN CHEW 81 MG TABLET PO SCH (08:58)
[2022-03-09] MEDS: INSULIN REGULAR 100 UNIT/ML SUBCUT SCH ×4 (08:59→23:13)
[2022-03-09] MEDS: cefTRIAXone 1,000 MG in SODIUM CHLORIDE 0.9% 100 ML IV SCH (08:59)
[2022-03-09] MEDS: PANTOPRAZOLE 40 MG TABLET PO SCH (09:00)
[2022-03-09] MEDS: DEXAMETHASONE INJ 10 MG in SODIUM CHLORIDE 0.9% 50 ML IV SCH (09:36)
[2022-03-09] MEDS: AZITHROMYCIN INJ 500 MG in SODIUM CHLORIDE 0.9% 250 ML IV SCH (10:13)
[2022-03-09] MEDS: INSULIN GLARGINE 100 UNIT/ML SUBCUT SCH (23:13)
[2022-03-09] MEDS: AMITRIPTYLINE 25 MG TABLET PO SCH (23:14)
[2022-03-09] MEDS: diphenhydrAMINE CAP 25 MG CAPSULE PO PRN (23:14)
[2022-03-10] MEDS: LOPERAMIDE 2 MG CAPSULE PO PRN ×2 (04:50→22:27)
[2022-03-10] MEDS: MORPHINE 2 MG/1 ML SYRINGE IV PRN ×2 (04:51→22:29)
[2022-03-10] MEDS: ONDANSETRON 4 MG/2 ML VIAL IV PRN ×2 (04:56→22:32)
[2022-03-10] MEDS: INSULIN REGULAR 100 UNIT/ML SUBCUT SCH ×4 (07:55→22:26)
[2022-03-10 08:12] LABS: Basophils % 0.4 % (0.0-0.8); Eosinophils # 0.2 10*3/uL (0.0-0.87); Eosinophils % 2.5 % (0.00-10.9); Hematocrit 28.1 VOL% (35.7-47.0); Immature Granulocytes % 0.9 %; Immature Granulocytes Absolute 0.08 #; Lymphocytes # 2.4 10*3/uL (1.4-4.0); Lymphocytes % 26.4 % (21.3-54.2); Mean Corpuscular HGB Conc 33.8 GM/DL (32-36); Mean Corpuscular Volume 90.9 FL (87-102); Mean Platelet Volume 9.5 FL (9.6-12.0); Monocytes # 0.8 10*3/uL (0.11-0.8); Neutrophils % 60.8 % (38.7-73.9); Platelet Count 226 T/CUMM (130-400); Red Cell Distribution Width 14.6 % (9.3-17.3)
[2022-03-10 08:22] LABS: White Blood Count 8.9 T/CUMM (4-12)
[2022-03-10 08:23] LABS: Hemoglobin 9.5 GM/DL (12.0-16.0); Red Blood Count 3.09 MC/CUMM (3.8-5.5)
[2022-03-10 08:27] LABS: Calcium 8.3 MG/DL (8.5-10.1); Osmolality,Calculated 294.5 MOS/KG (273-304); Potassium 3.9 MMOL/L (3.5-5.1)
[2022-03-10] MEDS ORDERED: HEPARIN 10,000 UNIT/10 ML VIAL IV PRN (09:21)
[2022-03-10] MEDS: ATORVASTATIN 40 MG TABLET PO SCH (11:04)
[2022-03-10] MEDS: PANTOPRAZOLE 40 MG TABLET PO SCH (11:04)
[2022-03-10] MEDS: carvediloL 25 MG TABLET PO SCH ×2 (11:04→22:27)
[2022-03-10] MEDS: ASPIRIN CHEW 81 MG TABLET PO SCH (11:04)
[2022-03-10] MEDS: metOLazone 5 MG TABLET PO SCH ×2 (11:05→22:28)
[2022-03-10] MEDS: MONTELUKAST 10 MG TABLET PO SCH (11:05)
[2022-03-10] MEDS: GABAPENTIN 100 MG CAPSULE PO SCH (11:06)
[2022-03-10] MEDS: cefTRIAXone 1,000 MG in SODIUM CHLORIDE 0.9% 100 ML IV SCH (11:12)
[2022-03-10] MEDS: DEXAMETHASONE INJ 10 MG in SODIUM CHLORIDE 0.9% 50 ML IV SCH (11:49)
[2022-03-10] MEDS: AZITHROMYCIN INJ 500 MG in SODIUM CHLORIDE 0.9% 250 ML IV SCH (13:09)
[2022-03-10] MEDS ORDERED: FLUCONAZOLE 200 MG TABLET PO ONE (16:12)
[2022-03-10] MEDS: AMITRIPTYLINE 25 MG TABLET PO SCH (22:27)
[2022-03-10] MEDS: INSULIN GLARGINE 100 UNIT/ML SUBCUT SCH (22:27)
[2022-03-10] MEDS: diphenhydrAMINE CAP 25 MG CAPSULE PO PRN (22:28)
[2022-03-11] MEDS: MORPHINE 2 MG/1 ML SYRINGE IV PRN ×2 (05:21→21:22)
[2022-03-11] MEDS: LOPERAMIDE 2 MG CAPSULE PO PRN (05:21)
[2022-03-11] MEDS: ONDANSETRON 4 MG/2 ML VIAL IV PRN (05:25)
[2022-03-11 06:28] LABS: Basophils % 0.5 % (0.0-0.8); Eosinophils # 0.1 10*3/uL (0.0-0.87); Hematocrit 26.8 VOL% (35.7-47.0); Hemoglobin 8.9 GM/DL (12.0-16.0); Immature Granulocytes % 0.9 %; Immature Granulocytes Absolute 0.07 #; Lymphocytes # 1.7 10*3/uL (1.4-4.0); Mean Corpuscular HGB Conc 33.2 GM/DL (32-36); Mean Corpuscular Volume 91.8 FL (87-102); Monocytes # 0.6 10*3/uL (0.11-0.8); Monocytes % 8.1 % (1.7-12.7); Neutrophils % 67.5 % (38.7-73.9); Platelet Count 208 T/CUMM (130-400); Red Blood Count 2.92 MC/CUMM (3.8-5.5); Red Cell Distribution Width 14.5 % (9.3-17.3); White Blood Count 7.7 T/CUMM (4-12)
[2022-03-11 06:41] LABS: Osmolality,Calculated 310.2 MOS/KG (273-304); Potassium 5.1 MMOL/L (3.5-5.1)
[2022-03-11] MEDS: INSULIN REGULAR 100 UNIT/ML SUBCUT SCH ×4 (10:25→21:49)
[2022-03-11] MEDS: guaiFENesin/DM ER 600-30 MG TABLET PO PRN (10:27)
[2022-03-11] MEDS: ATORVASTATIN 40 MG TABLET PO SCH (10:27)
[2022-03-11] MEDS: ASPIRIN CHEW 81 MG TABLET PO SCH (10:27)
[2022-03-11] MEDS: carvediloL 25 MG TABLET PO SCH ×2 (10:28→21:50)
[2022-03-11] MEDS: MONTELUKAST 10 MG TABLET PO SCH (10:28)
[2022-03-11] MEDS: PANTOPRAZOLE 40 MG TABLET PO SCH (10:28)
[2022-03-11] MEDS: metOLazone 5 MG TABLET PO SCH ×2 (10:28→21:50)
[2022-03-11] MEDS: GABAPENTIN 100 MG CAPSULE PO SCH (10:28)
[2022-03-11] MEDS: DEXAMETHASONE INJ 10 MG in SODIUM CHLORIDE 0.9% 50 ML IV SCH (11:23)
[2022-03-11] MEDS: cefTRIAXone 1,000 MG in SODIUM CHLORIDE 0.9% 100 ML IV SCH (11:23)
[2022-03-11] MEDS: AZITHROMYCIN INJ 500 MG in SODIUM CHLORIDE 0.9% 250 ML IV SCH (13:06)
[2022-03-11] MEDS: INSULIN GLARGINE 100 UNIT/ML SUBCUT SCH (21:49)
[2022-03-11] MEDS: diphenhydrAMINE CAP 25 MG CAPSULE PO PRN (21:50)
[2022-03-11] MEDS: AMITRIPTYLINE 25 MG TABLET PO SCH (21:50)
[2022-03-12 04:59] LABS: Basophils % 0.5 % (0.0-0.8); Eosinophils # 0.1 10*3/uL (0.0-0.87); Hematocrit 26.3 VOL% (35.7-47.0); Hemoglobin 8.9 GM/DL (12.0-16.0); Immature Granulocytes % 0.8 %; Immature Granulocytes Absolute 0.07 #; Lymphocytes # 1.8 10*3/uL (1.4-4.0); Lymphocytes % 21.4 % (21.3-54.2); Mean Corpuscular HGB Conc 33.8 GM/DL (32-36); Mean Platelet Volume 9.7 FL (9.6-12.0); Monocytes # 0.7 10*3/uL (0.11-0.8); Monocytes % 8.6 % (1.7-12.7); Neutrophils % 67.7 % (38.7-73.9); Platelet Count 173 T/CUMM (130-400); Red Blood Count 2.89 MC/CUMM (3.8-5.5); Red Cell Distribution Width 14.3 % (9.3-17.3); White Blood Count 8.6 T/CUMM (4-12)
[2022-03-12 05:14] LABS: Calcium 8.2 MG/DL (8.5-10.1); Osmolality,Calculated 303.8 MOS/KG (273-304)
[2022-03-12] MEDS: MORPHINE 2 MG/1 ML SYRINGE IV PRN ×2 (06:13→13:03)
[2022-03-12] MEDS: INSULIN REGULAR 100 UNIT/ML SUBCUT SCH ×3 (07:44→19:56)
[2022-03-12 12:39] LABS: Hepatitis B Surface Ab Result Reactive (NonReactive)
[2022-03-12] MEDS: cefTRIAXone 1,000 MG in SODIUM CHLORIDE 0.9% 100 ML IV SCH (12:58)
[2022-03-12] MEDS: DEXAMETHASONE INJ 10 MG in SODIUM CHLORIDE 0.9% 50 ML IV SCH (12:59)
[2022-03-12] MEDS: ASPIRIN CHEW 81 MG TABLET PO SCH (13:00)
[2022-03-12] MEDS: ATORVASTATIN 40 MG TABLET PO SCH (13:01)
[2022-03-12] MEDS: MONTELUKAST 10 MG TABLET PO SCH (13:01)
[2022-03-12] MEDS: metOLazone 5 MG TABLET PO SCH (13:01)
[2022-03-12] MEDS: carvediloL 25 MG TABLET PO SCH (13:01)
[2022-03-12] MEDS: PANTOPRAZOLE 40 MG TABLET PO SCH (13:02)
[2022-03-12] MEDS: GABAPENTIN 100 MG CAPSULE PO SCH (13:02)
[2022-03-12] MEDS: AZITHROMYCIN INJ 500 MG in SODIUM CHLORIDE 0.9% 250 ML IV SCH (14:22)
[2022-03-12 15:57] VITALS: BP 143/72
== END 2022-03-12 17:42 | disposition home or self-care (01) | DRG 840 ==
LOC: N.ED 08:55 → SUATTDRO 11:03 → N.TELEN 11:03 → N.TELES 03-03 07:24
PROVIDERS: ADMIT Internal Medicine; ATTEND Internal Medicine